=== PATIENT | female | born 1980 | race Caucasian/White ===

== ENCOUNTER 2017-11-21 09:13 | Emergency (ER) | payer MEDICAID ==
[~2017-11-21] VITALS: Ht 165.1 cm; Wt 60.0 kg
[~2017-11-21 09:13] MED LIST: Z.0.NO CURRENT MEDS
[2017-11-21 09:16] VITALS: BP 106/67; PULSE 69; RESP 16; TEMP 97.6; O2SAT 97
[2017-11-21] MEDS ORDERED: XANA2TAB2 PO (09:25)
[2017-11-21] MEDS ORDERED: PROZ20CA11 PO ×2 (09:25→09:43)
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
== END 2017-11-21 10:05 | disposition home or self-care (01) ==
LOC: NEPD 09:13
DX: F20.9 Schizophrenia, unspecified (principal); F12.90 Cannabis use, unspecified, uncomplicated; F17.200 Nicotine dependence, unspecified, uncomplicated; Z76.0 Encounter for issue of repeat prescription
CPT/HCPCS: 99281